=== PATIENT | female | born 1985 | race African-American/Black ===

== ENCOUNTER → 2016-06-02 | Day surgery (SDC) | payer OTHER ==
[~2016-06-02] MED LIST: ALBUTEROL17 GM INH; LINZESS145 MCG PO; MIRALAX17 G2 PO; NO MEDICATIONS; PROTONIX PO; ZOFRAN PO
--- NOTE | ~2016-06-02 | OR ---
Unit #: [id number] #: [id number] Patient: EMMA LYNN [id number] [address] [place], [place] [address] [id number] O MR#: [id number] NAME: EMMA LYNN ROOM: Date of Procedure: 06/02/2016 Admission Date: 06/02/2016 Surgeon: Canelo Mcgarry M.D. : 1985 Attending Physician: Canelo Mcgarry M.D. Primary Care Physician: Generic Doctor Not In System OPERATIVE REPORT INDICATIONS FOR PROCEDURE The patient with history of severe constipation and occasional blood in the stool, abdominal pain, undergoing evaluation with colonoscopy. MEDICATIONS Monitored anesthesia. POSTOPERATIVE FINDINGS Normal TI and normal colonic mucosa throughout. Prep was good. PLAN Symptomatic treatment. DESCRIPTION OF PROCEDURE The patient was explained of the procedure, risks, and benefits along with risks and benefits of anesthesia. She was brought to the endoscopy room. Propofol anesthesia was given. Rectal exam was done, which was normal. Colonoscope was lubricated, passed up the rectum, advanced under direct vision all the way to the cecum. Cecum was identified by ileocecal valve and appendiceal orifice. Terminal ileum was intubated, shows normal mucosa. Colonic mucosa was normal throughout. I retroflexed in the rectum, small hemorrhoids seen. Scope was gently pulled out. She tolerated it well. Dictated by... Marc Wheatley/tash TD: 06/03/2016 02:12 JOB #: [id number] Unit #: [id number] #: [id number] Patient: EMMA LYNN OPERATIVE REPORT X Canelo Mcgarry MD X PROCEDURE OPERATIVE NOTE
== END | disposition home or self-care (01) ==
LOC: COPS 07:30
DX: K64.9 Unspecified hemorrhoids (principal); K59.00 Constipation, unspecified; R10.9 Unspecified abdominal pain; R19.5 Other fecal abnormalities; J45.909 Unspecified asthma, uncomplicated; K21.9 Gastro-esophageal reflux disease without esophagitis; Z88.8 Allergy status to other drugs, medicaments and biological substances; Z79.899 Other long term (current) drug therapy

== ENCOUNTER → 2016-10-22 | Outpatient (CLI) | payer OTHER ==
--- NOTE | ~2016-10-22 | US6 ---
[facility] A Service of [facility] & [facility] RADIOLOGY TEXT RESULTS PATIENT: EMMA LYNN LOCATION: [facility] : 85 UNIT #: [id number] AGE: [address]: David García MD SEX: F ORDER DR: [id number] [facility] [address] [place], [place] [address] [id number] O MR#: [id number] Acc #: [id number] NAME: EMMA LYNN : 1985 SEX: F STUDY DATE/TIME: 10/22/2016 8:52 UNIT: [facility] ROOM: STUDY DESCRIPTION: US Abdominal Limited Attending Physician: David García M.D. Referring Physician: David García M.D. Ordering Physician: David García M.D. MEDICAL IMAGING REPORT This report is preliminary unless electronic signature is present EXAM Right upper quadrant ultrasound 10/22/2016 HISTORY Nausea and vomiting since March 09, 2016, after eating FINDINGS Ultrasound examination of the gallbladder is negative. There is no cholelithiasis, gallbladder wall thickening, or bile duct dilatation. The visualized liver is negative. IMPRESSION Negative gallbladder ultrasound examination. Dictated by... Alan Kwong M.D. THIS IS AN ELECTRONICALLY VERIFIED REPORT Alan Kwong M.D. at 10/22/2016 5:55 PM ELMA/yves TD: 10/22/2016 12:59 JOB #: [id number] MEDICAL IMAGING REPORT Page 1 of 1 COPY
== END | disposition home or self-care (01) ==
LOC: CGUS 08:39
DX: R11.2 Nausea with vomiting, unspecified (principal)
CPT/HCPCS: 76705